=== PATIENT | male | born 1990 | race Caucasian/White ===

== ENCOUNTER 2019-11-25 09:36 | Emergency (ER) | payer MEDICAID ==
[2019-11-25 09:56] VITALS: BP 153/69
== END 2019-11-25 11:38 | disposition left against medical advice (07) ==
LOC: ED 09:36
DX: Z53.21 Procedure and treatment not carried out due to patient leaving prior to being seen by health care provider (principal)

== ENCOUNTER 2021-02-10 02:21 | Emergency (ER) | payer OTHER, MEDICAID ==
[2021-02-10 02:34] VITALS: BP 130/83
--- NOTE | 2021-02-10 03:14 | ED Physician Documentation ---
History of Present Illness - Stated complaint Stated Complaint: FFC, NAUSEA - Chief complaint Chief Complaint: General - History obtained from History obtained from: Patient, Police - History of Present Illness Timing: Unknown Pain level max: 0 Pain level now: 0 - Additonal information Additional information: brought to ED by police. patient is under arrest, brought to ED for FFC. patient has no c/o. he admits to daily use of heroin and methamphetamines,p via injection. Review of Systems Constitutional: reports: Reviewed and negative Cardiac: reports: Reviewed and negative Respiratory: reports: Reviewed and negative GI: reports: Reviewed and negative Skin: reports: Lesions (diffuse pick reese and scabbed injection sites) Musculoskeletal: reports: Reviewed and negative PD PAST MEDICAL HISTORY - Past Medical History Past Medical History: No - Past Surgical History Past Surgical History: No - Present Medications Home Medications: Ambulatory Orders Medication Instructions Recorded Confirmed LORazepam [Ativan] 0.5 mg PO Q6H #10 tablet 02/10/21 cloNIDine [Catapres] 0.2 mg PO BID #12 tablet 02/10/21 - Allergies Allergies/Adverse Reactions: Allergies Allergy/AdvReac Type Severity Reaction Status Date / Time No Known Drug Allergies Allergy Verified 11/25/19 09:56 - Social History Does the pt smoke?: Yes Smoking Status: Current every day smoker Does the pt drink ETOH?: No Does the pt have substance abuse?: Yes Substance Use and Type: Meth, Heroin - Immunizations Immunizations are current?: No - POLST Patient has POLST: No PD ED PE NORMAL - Vitals Vital signs reviewed: Yes - General General: Alert and oriented X 3, No acute distress, Well developed/nourished - HEENT HEENT: PERRL, EOMI, Moist mucous membranes - Cardiac Cardiac: RRR, No murmur - Respiratory Respiratory: No respiratory distress, Clear bilaterally - Abdomen Abdomen: Non tender - Derm Derm: Other (diffuse pick reese and injection sites without evidence of infection (no erythema, fluctuance, TTP, discharge, swelling)) - Extremities Extremities: No tenderness to palpate, Normal ROM s pain, No edema - Neuro Neuro: Alert and oriented X 3 Results - Vitals Vitals: Oxygen O2 Source Room air PD MEDICAL DECISION MAKING - ED course Complexity details: considered differential, d/w patient ED course: given lorazepam and clonidine to help with anticipated symptoms of withdrawal. he will likely need stronger medication but this can be determined by retirement medical personnel. Departure - Departure Disposition: 01 Home, Self Care Clinical Impression: Heroin abuse, Methamphetamine abuse Condition: Good Instructions: ED Drug Abuse General, ED Narcotic Abuse Prescriptions: LORazepam [Ativan] 0.5 mg PO Q6H #10 tablet cloNIDine [Catapres] 0.2 mg PO BID #12 tablet Discharge Date/Time: 02/10/21 03:46
[2021-02-10] MEDS ORDERED: LORazepam 0.5 MG TABLET PO STA (03:22)
[2021-02-10] MEDS ORDERED: cloNIDine 0.1 MG TABLET PO STA (03:22)
== END 2021-02-10 03:46 | disposition home or self-care (01) ==
LOC: ED 02:21
DX: F11.10 Opioid abuse, uncomplicated (principal); F15.10 Other stimulant abuse, uncomplicated; L98.9 Disorder of the skin and subcutaneous tissue, unspecified
CPT/HCPCS: 99282; 99283; A9270

== ENCOUNTER 2023-03-14 13:43 | Emergency (ER) | payer MEDICAID, OTHER ==
[2023-03-14 13:55] VITALS: BP 128/82
--- NOTE | 2023-03-14 14:06 | ED Physician Documentation ---
PD HPI WOUND RECHECK - Stated complaint Stated Complaint: LT LEG PX - Chief complaint Chief Complaint: Wound - Histroy obtained from History obtained from: Patient - Additional information Additional information: 32-year-old gentleman comes [facility] He is a 20-month history of painful weeping rash on the left leg. He has had some debridements and at some point was diagnosed with MRSA and has not improved despite wound care and multiple rounds of antibiotics. There is no acute complaints. PD PAST MEDICAL HISTORY - Past Surgical History Past Surgical History: No - Present Medications Home Medications: Ambulatory Orders Medication Instructions Recorded Confirmed LORazepam [Ativan] 0.5 mg PO Q6H #10 tablet 02/10/21 cloNIDine [Catapres] 0.2 mg PO BID #12 tablet 02/10/21 - Allergies Allergies/Adverse Reactions: Allergies Allergy/AdvReac Type Severity Reaction Status Date / Time No Known Drug Allergies Allergy Verified 03/14/23 13:47 - Social History Does the pt smoke?: Yes Smoking Status: Current every day smoker Does the pt drink ETOH?: No Does the pt have substance abuse?: Yes - Immunizations Immunizations are current?: No - POLST Patient has POLST: No PD ED PE NORMAL - Vitals Vital signs reviewed: Yes - General General: Alert and oriented X 3, No acute distress - Extremities Extremities: Other (There is an irregular raised necrotic wound measuring approximately 10 x 10 cm to the anterior mid right garcía with mild surrounding cellulitis.) - Neuro Neuro: Alert and oriented X 3, Normal speech - Psych Psych: Normal mood, Normal affect Results - Vitals Vitals: Vital Signs - 24 hr 03/14/23 13:47 Temperature 36.5 C Heart Rate 74 Respiratory 18 Rate Blood Pressure 128/82 H O2 Saturation 98 Oxygen O2 Source Room air PD Medical Decision Making - ED course ED course: 32-year-old gentleman with a chronic lesion on the left lower extremity. I spoke with the snf nurse, Emily Garcia who has been trying to get him into wound care but without success and as such they got frustrated brought him to the emergency department today. I recommend change his antibiotics to doxycycline plus rifampin. I also contacted Melina Chang who will see him in the office for a biopsy. Given the time course an underlying autoimmune lesion such as pyoderma gangrenosum is a distinct possibility. Departure - Departure Disposition: 01 Home, Self Care Clinical Impression: Chronic wound of extremity Condition: Good Record reviewed to determine appropriate education?: Yes Comments: I discussed the case today with Emily Garcia. She is going to change her antibiotics. She will also make an appointment with dermatology for follow-up and a biopsy. Return if worse.
--- NOTE | 2023-03-16 12:40 | ED Physician Documentation ---
ED Addendum - Addendum Addendum: 03/16/23 12:40 Wound culture reviewed, it was an E. coli that was sensitive only to cefazolin, cefepime, ceftriaxone, ertapenem, and gentamicin and imipenem and tobramycin. I called Emily Garcia, the [facility] nurse practitioner and recommended a change in antibiotics to Keflex given this.
== END 2023-03-14 14:23 | disposition home or self-care (01) ==
LOC: ED 13:43
DX: Z48.00 Encounter for change or removal of nonsurgical wound dressing (principal); F17.200 Nicotine dependence, unspecified, uncomplicated
CPT/HCPCS: 87070; 87077; 87181; 87205; 99283